=== PATIENT | female | born 1990 | race African-American/Black ===

== ENCOUNTER 2016-12-06 18:57 | Emergency (ER) | payer MEDICAID ==
[~2016-12-06] VITALS: Ht 160 cm; Wt 91.0 kg
[~2016-12-06 18:57] MED LIST: FERR-43 PO; PREN-88 PO
[2016-12-06 23:39] VITALS: BP 122/78
== END 2016-12-06 23:55 | disposition home or self-care (01) ==
LOC: ER 18:57
DX: B34.9 Viral infection, unspecified (principal); J02.9 Acute pharyngitis, unspecified; H92.03 Otalgia, bilateral
CPT/HCPCS: 99282

== ENCOUNTER 2017-02-16 12:00 | Emergency (ER) | payer MEDICAID ==
[~2017-02-16] VITALS: Ht 160 cm; Wt 100.0 kg
[2017-02-16] MEDS ORDERED: KETOROLAC 60MG/2ML VIAL IM ONE (14:00)
[2017-02-16 15:24] VITALS: BP 129/81
== END 2017-02-16 16:19 | disposition home or self-care (01) ==
LOC: ER 13:08
DX: R09.1 Pleurisy (principal)
CPT/HCPCS: 71020; 81025; 93005; 96372; 99284; J1885

== ENCOUNTER 2017-09-01 12:46 | Emergency (ER) | payer MEDICAID ==
[~2017-09-01] VITALS: Ht 157.5 cm; Wt 91.0 kg
[2017-09-01 15:34] VITALS: BP 110/69
== END 2017-09-01 15:36 | disposition home or self-care (01) ==
LOC: ER 12:46
DX: R59.0 Localized enlarged lymph nodes (principal)
CPT/HCPCS: 99283